=== PATIENT | female | born 1995 | race Caucasian/White ===

== ENCOUNTER 2017-02-10 19:17 | Inpatient (IN) | payer MEDICAID ==
[~2017-02-10] VITALS: Ht 157.5 cm; Wt 95.7 kg
[2017-02-10 22:41] LABS: BASOPHIL % 0.4 % (0-2); PLATELET COUNT 208 x10^3mcL (130-400); RED CELL DISTRIBUTION WIDTH 12.5 % (11.5-14.5)
[2017-02-10 23:01] LABS: CALCIUM 9.5 mg/dL (8.5-10.1); CARBON DIOXIDE 29.1 mmol/L (21-32); CHLORIDE SERUM 102 mmol/L (98-107); CREATININE SERUM 0.7 mg/dL (0.6-1.0); GFR1 > 60 mL/min; GLUCOSE SERUM 114 mg/dL (74-106); POTASSIUM SERUM 3.6 mmol/L (3.5-5.1); SODIUM SERUM 139 mmol/L (136-145)
[2017-02-10 23:05] LABS: ALBUMIN 4.1 g/dL (3.4-5.0); ALKALINE PHOSPHATASE 188 U/L (46-116); ALT/SGPT 874 U/L (14-59); AMYLASE 40 U/L (25-115); AST/SGOT 438 U/L (15-37); BILIRUBIN TOTAL 5.59 mg/dL (0.20-1.00); LIPASE 112 IU/L (73-393)
[2017-02-10 23:06] LABS: UA SPECIFIC GRAVITY 1.015 (1.005-1.035); microscopic required? YES; urine erythrocyte NEGATIVE (NEGATIVE)
[2017-02-10 23:08] LABS: TOTAL PROTEIN, SERUM 8.3 g/dL (6.4-8.2)
[2017-02-11] VITALS (8 sets, daily range): BP systolic 90–130; BP diastolic 38–80
[2017-02-11 02:44] LABS: FREE T4 1.11 ng/dL (0.76-1.46); FREE THYROXINE INDEX 2.9 ug/dL (1.4-4.5); T4(THYROXINE) 8.8 ug/dL (4.7-13.3)
[2017-02-11 02:46] LABS: T3 TOTAL 0.94 ng/mL
[2017-02-11 03:01] LABS: CHOLESTEROL/HDL RATIO 2.2
[2017-02-11 06:07] LABS: BASOPHIL % 0.7 % (0-2); PLATELET COUNT 182 x10^3mcL (130-400); RED CELL DISTRIBUTION WIDTH 12.5 % (11.5-14.5)
[2017-02-11 06:32] LABS: CALCIUM 8.4 mg/dL (8.5-10.1); CHLORIDE SERUM 104 mmol/L (98-107); CREATININE SERUM 0.6 mg/dL (0.6-1.0); GFR1 > 60 mL/min; GLUCOSE SERUM 99 mg/dL (74-106); MAGNESIUM 2.1 mg/dL (1.8-2.4); PHOSPHOROUS 3.9 mg/dL (2.5-4.9); POTASSIUM SERUM 3.3 mmol/L (3.5-5.1); SODIUM SERUM 140 mmol/L (136-145)
[2017-02-12 05:57] VITALS: BP 107/48
[2017-02-12 06:02] LABS: BASOPHIL % 0.1 % (0-2); PLATELET COUNT 171 x10^3mcL (130-400); RED CELL DISTRIBUTION WIDTH 12.7 % (11.5-14.5)
[2017-02-12 06:44] LABS: CALCIUM 8.7 mg/dL (8.5-10.1); CHLORIDE SERUM 104 mmol/L (98-107); CREATININE SERUM 0.5 mg/dL (0.6-1.0); GFR1 > 60 mL/min; GLUCOSE SERUM 77 mg/dL (74-106); MAGNESIUM 1.7 mg/dL (1.8-2.4); POTASSIUM SERUM 3.5 mmol/L (3.5-5.1); SODIUM SERUM 139 mmol/L (136-145)
[2017-02-12 09:11] LABS: BILIRUBIN DIRECT 1.82 mg/dL (0.0-0.2); BILIRUBIN TOTAL 2.58 mg/dL (0.20-1.00); TOTAL PROTEIN, SERUM 6.2 g/dL (6.4-8.2)
[2017-02-12 09:15] LABS: ALBUMIN 3.2 g/dL (3.4-5.0)
[2017-02-12 16:12] VITALS: BP 112/50
[2017-02-12 21:45] VITALS: BP 114/42
[2017-02-13 05:40] VITALS: BP 96/47
[2017-02-13 06:05] LABS: BASOPHIL % 0.2 % (0-2); PLATELET COUNT 163 x10^3mcL (130-400); RED CELL DISTRIBUTION WIDTH 12.8 % (11.5-14.5)
[2017-02-13 06:10] LABS: ALKALINE PHOSPHATASE 137 U/L (46-116); ALT/SGPT 389 U/L (14-59); AST/SGOT 114 U/L (15-37); BILIRUBIN TOTAL 1.3 mg/dL (0.20-1.00); CALCIUM 8.5 mg/dL (8.5-10.1); CARBON DIOXIDE 26.7 mmol/L (21-32); CHLORIDE SERUM 106 mmol/L (98-107); CREATININE SERUM 0.5 mg/dL (0.6-1.0); GFR1 > 60 mL/min; GLUCOSE SERUM 104 mg/dL (74-106); MAGNESIUM 1.9 mg/dL (1.8-2.4); POTASSIUM SERUM 3.4 mmol/L (3.5-5.1); SODIUM SERUM 141 mmol/L (136-145); TOTAL PROTEIN, SERUM 6.3 g/dL (6.4-8.2)
[2017-02-13 06:28] LABS: ALBUMIN 2.9 g/dL (3.4-5.0)
[2017-02-13 10:00] VITALS: BP 111/46
[2017-02-13 16:30] VITALS: BP 130/86
[2017-02-13 16:33] VITALS: BP 98/41
[2017-02-13 21:35] VITALS: BP 122/49
[2017-02-14 05:49] VITALS: BP 113/46
[2017-02-14 06:26] LABS: BASOPHIL % 0.5 % (0-2); PLATELET COUNT 162 x10^3mcL (130-400); RED CELL DISTRIBUTION WIDTH 12.7 % (11.5-14.5)
[2017-02-14 06:27] LABS: CALCIUM 8.7 mg/dL (8.5-10.1); CARBON DIOXIDE 28.4 mmol/L (21-32); CHLORIDE SERUM 104 mmol/L (98-107); CREATININE SERUM 0.6 mg/dL (0.6-1.0); GFR1 > 60 mL/min; GLUCOSE SERUM 98 mg/dL (74-106); MAGNESIUM 1.9 mg/dL (1.8-2.4); PHOSPHOROUS 4.5 mg/dL (2.5-4.9); POTASSIUM SERUM 3.9 mmol/L (3.5-5.1); SODIUM SERUM 139 mmol/L (136-145)
[2017-02-14] MEDS ORDERED: APAP/HYDROCODON1 T13 PO (08:46)
[2017-02-14] MEDS ORDERED: COL100 PO (08:47)
[2017-02-14] MEDS ORDERED: MAC100 PO (08:48)
[2017-02-14] MEDS ORDERED: LAC PO (08:49)
[2017-02-14] MEDS ORDERED: MOT800 PO (09:04)
[2017-02-14] MEDS ORDERED: SIMETHICONE80 MG CH (09:10)
[2017-02-14 10:08] VITALS: BP 121/50
[2017-02-14 11:04] VITALS: BP 121/50
== END 2017-02-14 13:30 | disposition home or self-care (01) | DRG 263 ==
LOC: ED 19:17 → DU 23:37 → MU 02-12 05:37
PROVIDERS: Emergency Medicine; Family Medicine; Internal Medicine Gastroenterology; Surgery; ADMIT Family Medicine
PROC: 0F798ZZ Dilation of Common Bile Duct, Via Natural or Artificial Opening Endoscopic (ICD-10-PCS; 2017-02-11 11:30)
PROC: 0FT44ZZ Resection of Gallbladder, Percutaneous Endoscopic Approach (ICD-10-PCS; principal; 2017-02-12 09:00)
DX: K80.42 Calculus of bile duct with acute cholecystitis without obstruction (principal); N17.0 Acute kidney failure with tubular necrosis; N39.0 Urinary tract infection, site not specified; E44.0 Moderate protein-calorie malnutrition; D64.9 Anemia, unspecified; E83.42 Hypomagnesemia; E87.6 Hypokalemia; E66.9 Obesity, unspecified; Z68.38 Body mass index [BMI] 38.0-38.9, adult
CPT/HCPCS: 43262; 83880; 84439; C1769; J0330; J0690; J0696; J1610; J1885; J2175; J2250; J2270; J2405; J2704; J2710; J3010; J3480; J3490; J7030; J7120; Q0092; Q9967

== ENCOUNTER 2020-03-31 18:41 | Emergency (ER) | payer MEDICAID, SELFPAY ==
[~2020-03-31] VITALS: Ht 162.6 cm; Wt 81.6 kg
[~2020-03-31 18:41] MED LIST: APAP/HYDROCODON1 T13 PO; COL100 PO; LAC PO; MAC100 PO; MOT800 PO; SIMETHICONE80 MG CH
[2020-03-31 20:12] VITALS: Ht 162.6 cm; Wt 81.6 kg
[2020-04-01 00:13] VITALS: BP 111/87
== END 2020-04-01 00:13 | disposition home or self-care (01) ==
LOC: ED 18:41
DX: J02.9 Acute pharyngitis, unspecified (principal); Z20.828 Contact with and (suspected) exposure to other viral communicable diseases
CPT/HCPCS: U0003-CS